=== PATIENT | female | born 1960 | race Caucasian/White ===

== ENCOUNTER 2016-08-31 06:54 | Day surgery (SDC) | payer BC ==
--- NOTE | ~2016-08-31 | OP ---
Record Of Operation [facility] [address] [place]. [address] NAME: CRYSTAL CLEMONS : 64 STATUS : [facility]#: [id number] AGE: 55 ADM/REG DATE : 08/31/16 MR#: [id number] REPORT SERV DATE: 08/31/16 DICTATED BY: SILVIA PRESLEY DATE: 08/31/16 REPORT STATUS : Draft TRANSCRIBED BY: NORRIS DATE: 08/31/16 DATE OF PROCEDURE: 08/31/2016 PREOPERATIVE DIAGNOSES: 1. Indwelling left chest wall venous port. 2. History of right breast cancer. POSTOPERATIVE DIAGNOSIS: History of right breast cancer. PROCEDURE: Removal of left chest wall venous port. INDICATION FOR THE PROCEDURE: Ms Clemons is a healthy 55-year-old female, who was treated for a right breast cancer recently. She had chemotherapy adjuvantly, and is ready for port removal. The patient has not had any issues with the port, and has no sign of infection. OPERATIVE FINDINGS: After appropriate consent was noted on the chart, the patient was taken to the operating room in supine position. Her arms were tucked, and the left chest wall was prepped and draped in sterile fashion. The scar was anesthetized with 1% lidocaine plain. The scar was opened with a #15 blade, and sharp dissection was carried down to the level of the port hub. The port hub was grasped with a DeBakey. Started with a hemostat and the catheter was visualized. The catheter was pulled from the vein using two DeBakey, and the catheter had no shearing, tearing, or sign of mechanical issue. Pressure was held on the neck. Once the catheter had been removed, and this was held for 5 minutes. All pressure was being held. The two stay sutures were clipped and removed. The port was removed from the port cavity. When the port was removed, there was no sign of infection. No sign of mechanical issue. The wound was copiously irrigated with warm saline. Hemostasis was achieved. The incision was then closed in a single layer of 3-0 Monocryl suture. The skin was cleansed and dried, and pressure was held for approximately 2 to 3 minutes secondary to oozing from the skin edges. Dermabond was overlaid, and allowed to dry. The patient was taken to the PACU in stable condition for recovery. All counts were correct at the end of the case. ESTIMATED BLOOD LOSS: Less than 5 mL. COMPLICATIONS: None. SPECIMEN: Port was thrown away and not sent for pathology. KAROLINE/NORRIS Silvia Presley MD Record Of Operation [address] [address] NAME: CRYSTAL CLEMONS : 64 STATUS : [facility] PAT#: [id number] AGE: 55 ADM/REG DATE : 08/31/16 MR#: [id number] REPORT SERV DATE: 08/31/16 DICTATED BY: SILVIA PRESLEY DATE: 08/31/16 REPORT STATUS : Draft TRANSCRIBED BY: NORRIS DATE: 08/31/16 / [id number] CC: Silvia Presley MD [facility] Mauricio Truong M.D. Justice Skelton M.D.
[~2016-08-31 06:54] MED LIST: *DENIES; ALEVE COLD PO; BEN25 PO; [UNRECOGNIZED DRUG - OTHER] PO
== END 2016-08-31 09:37 | disposition home or self-care (01) ==
LOC: SDC 06:54
PROVIDERS: Surgery Surgical Oncology
PROC: 0JPT0XZ Removal of Tunneled Vascular Access Device from Trunk Subcutaneous Tissue and Fascia, Open Approach (ICD-10-PCS; principal; 2016-08-31 07:45)
DX: Z45.2 Encounter for adjustment and management of vascular access device (principal); Z98.890 Other specified postprocedural states; Z80.3 Family history of malignant neoplasm of breast
CPT/HCPCS: J0690